=== PATIENT | female | born 1990 | race Caucasian/White ===

== ENCOUNTER 2021-04-01 10:00 | Inpatient (IN) | payer BC, SELFPAY ==
[2013-07-06 08:36] VITALS: BMI 25.2
[2021-04-01] VITALS (22 sets, daily range): BP systolic 96–124; BP diastolic 35–70; PULSE 75–99; RESP 16–18; TEMP 36.2–37.6; O2SAT 96–100; BMI 25.4
--- NOTE | 2021-04-01 | FALS_PTH ---
PATIENT: KELY PEREZ LOC: [facility] U#:[id number] AGE/SX: 30/F ROOM: WP007 RE04/01/[address]: Dr. Chloe Brantley MD : 1990 BED: 1 DIS: 04/03/2021 SPEC #: [id number] RECD: 04/01/21 13:55 STATUS: MARGE ALSTONFord #: [id number] TEJ: 04/01/21 00:[address]: Chloe Brantley DEPT: SURGICAL PATHOLOGY RECD BY: Gomez Pimentel ENTERED: 04/02/21 08:57 SP TYPE: FALL TUBES OTHR DR: Dr. Vito Edward MD Tissues: Fallopian tube Procedures: Surgery Specimen Level II HEADER OPERATION: Tubal ligation PRE-OP DIAGNOSIS: Sterilization TISSUE SUBMITTED: Fallopian tubes, suture in right tube MICROSCOPIC DIAGNOSIS Right and left fallopian tubes, bilateral salpingectomies: Complete segments of fallopian tubes. Benign paratubal cysts. AM:geraldine 04/03/2021 MICROSCOPIC DESCRIPTION Slides are reviewed. GROSS DESCRIPTION Received in fixative is one container labeled with the patient's name and designated bilateral fallopian tubes. The specimen consists of two fallopian tubes with an average length of 9.5 cm and has an average diameter of 0.7 cm. Both fallopian tubes have normal fimbriated ends. No mass lesions are identified. Ski Maker sections are submitted in two cassettes as follows: 1 - fallopian tube with suture, 2 - fallopian tube without suture. / AM:geraldine 04/02/21 TC:5 CPT: 16556 x2
[2021-04-01 09:54] LABS: ROM Internal Control Test YES-OK TO RESULT pt. (Internal QC)
[2021-04-01 09:55] LABS: ROM Patient Test POSITIVE (Negative)
[2021-04-01] MEDS: Lactated Ringers 1,000 ML 999 ML IV (10:25)
[2021-04-01 10:45] LABS: Absolute Lymphocyte Count 1.32 X10^3/uL (0.83-4.51); Basophil# 0.05 X10^3/uL; Basophil% 0.6 % (0-1); Eosinophil# 0.07 X10^3/uL; Eosinophils% 0.8 % (0-5); Hematocrit 30.5 % (37-47); Hemoglobin 9.8 g/dL (12.0-15.0); Lymphocyte # 1.32 X10^3/ul (0.83-4.51); Lymphocyte % 15.9 % (19-41); Mean Corp Hgb Conc 32.1 g/dL (32-36); Mean Corpuscular Hgb 26.8 pg (27.0-32.0); Mean Corpuscular Volume 83.3 fL (81-99); Mean Platelet Vol. 11.3 fl (6.2-12.0); Monocyte# 0.75 X10^3/uL; Monocyte% 9.1 % (0-10); NRBC Flagged by Analyzer 0 % (0-5); Neutrophil # 6.03 X10^3/uL (2.7-7.7); Neutrophil % 72.9 % (47-70); Platelet Count 161 K/mm3 (150-450); RBC Distribution Width CV 14.6 % (11.6-14.6); Red Blood Count 3.66 M/mm3 (4.2-5.4); White Blood Count 8.3 K/mm3 (4.4-11.0)
[2021-04-01] MEDS: Lactated Ringers 1,000 ML 150 ML IV (11:28)
[2021-04-01] MEDS: Sodium Citrate/Citric Acid 30 ML UDC PO (11:31)
--- NOTE | 2021-04-01 11:33 | HP.PCM.OB_ITS ---
HPI - General General Date of Admission: 04/01/21 HPI Narrative KELY PEREZ, is a 30 F who presents [facility] Medical History (Updated 04/01/21 @ 11:[address] Chloe Brantley MD) Anemia Anxiety Asthma Depression IBS (irritable bowel syndrome) Oligohydramnios Home Medications Vits 1 tab PO DAILY 07/01/13 [History Last Taken 03/31/21 10:00 1 tab] acetaminophen [Tylenol] 650 mg PO Q6H PRN 04/01/21 [History Last Taken 04/01/21 07:45 650 mg] bismuth ximu-boajaz-TmAu-resor [Anusol] 1 supp [place] PRN PRN 04/01/21 [History Last Taken 03/30/21 12:00 1 suppository] Allergy/AdvReac Type Severity Reaction Status Date / Time grass pollen-perennial rye, Allergy Rash Verified 07/05/13 15:52 standar [grass poll-perennial rye,std] Latex, Natural Rubber Allergy Hives Verified 06/27/13 18:41 Penicillins [PCN] Allergy Chest Verified 07/05/13 15:52 tightness Sulfa (Sulfonamide Allergy Hives Verified 06/27/13 18:40 Antibiotics) venom-honey bee Allergy Chest Verified 07/05/13 15:52 [bee venom (honey bee)] tightness Surgical History (Updated 04/01/21 @ 10:44 by Thelma Brown) History of surgery Social History Smoking Status: Never smoker History Elective abortions Hx Para 2 Spontaneous abortions Hx # Term Pregnancies Ectopic pregnancies Hx # Pregnancies Multiple births # of living children NST FHR Rate Baby A Baseline: 150 Variability:: Moderate Accelerations:: 15 x 15 Uterine Activity:: Irregular Vital Signs Vital Signs Vital Signs: 04/01/21 09:52 04/01/21 09:55 04/01/21 11:07 Temperature 98.6 F 99.7 F H Temperature Source Temporal Temporal Pulse Rate 99 97 82 Respiratory Rate 18 Blood Pressure 117/68 117/68 123/66 H Blood Pressure Mean 85 BP Systolic 117 117 BP Diastolic 68 68 Blood Pressure Source Monitor Blood Pressure Position Semi-Fowlers Blood Pressure Location Left Arm Pulse Ox 97 04/01/21 11:08 Temperature Temperature Source Pulse Rate 82 Respiratory Rate Blood Pressure 123/66 H Blood Pressure Mean BP Systolic 123 BP Diastolic 66 Blood Pressure Source Blood Pressure Position Blood Pressure Location Pulse Ox Weight Weight: 148 lb Body Mass Index (BMI) 25.4 Labs Labs Labs: Blood Type Not Reportable Antibody Screen Not Reportable Hct 30.5 % (37-47) L Hgb 9.8 g/dL (12.0-15.0) L Rhogam given: Yes See [facility] H&P Assessment & Plan (1) Labor presentation, breech: QUALIFIERS: Fetus number: single or unspecified fetus Qualified Code(s): O32.1XX0 - Maternal care for breech presentation, not applicable or unspecified COMMENT: @ 37&5 PLAN: Admit to L&D Counseled on R/B/A of primary section and patient wishes to proceed. Informed consent signed. Tubal sterilization - patient counseled extensively on risks of regret & failure. She wishes to proceed with bilateral salpingectomy.
--- NOTE | 2021-04-01 13:08 | OP.PCM_ITS ---
Details Operative Information Date of Procedure: 04/01/21 Pre-Operative Diagnosis: (1) Labor at 37&5 (2) Breech (3) Sterilization request Post-Operative Diagnosis: Same Indications for : Breech Classification: JEAN-CLAUDE Procedure Type: low transverse (and bilateral salpingectomy) spooling operator #1: Loly De Los Santos Type of Anesthesia: Spinal Antibiotic Given: Clindamycin 600mg IV x1 and Gentamicin 1.5mg/kg IV x1 Drain: Cruz to straight drain Estimated Blood Loss: 800ml Fluids Replaced: 1000ml Procedure Start Time: 12:04 Procedure Stop Time: 13:08 Findings Description of Procedure: The patient was taken to the operating room where spinal anesthesia was placed. She was prepped and draped in the dorsal supine position with a leftward tilt. A Pfannenstiel skin incision was made approximately 2 cm above the symphysis pubis and carried through to underlying layer fascia with the scalpel. The fascia was incised incised in the midline and extended laterally with the Hansen scissors. The rectus muscles were in the midline and the peritoneum was entered carefully and bluntly. The peritoneal incision was stretched and the bladder blade was placed. The uterine incision was made in a low transverse fashion with the scalpel and extended superiorly and inferiorly with blunt dissection. The infant's buttocks were grasped and delivered carefully with typical breech maneuvers. The cord was clamped and cut as the was stimulated. Cord clamping was delayed. The infant was handed off to the waiting nursing staff. The placenta was delivered with fundal massage and gentle traction in the standard fashion. The uterus was exteriorized and cleared of all clots and debris. The uterine incision was closed with #1 Vicryl suture in a running locked fashion. Monocryl suture was used in an imbricating fashion for a second layer. The incision was examined and was found to be hemostatic. Attention was then turn to the patient's fallopian tubes. The right fallopian was grasped, cauterized and then cut using the ligasure. The entire right fallopian tube was excised in this fashion and excellent hemostasis was noted. This process was repeated with the left fallopian tube. The uterus was then returned to the abdominal cavity. Excellent hemostasis again confirmed at bilateral salpingectomy sites. After irrigating rodrigo was placed over the uterine incision as some tissue was denuded. Peritoneum was closed in running fashion. The rectus muscles were examined and any bleeding was Bovie cauterized. The subcutaneous tissue was examining and any bleeding was Bovie cauterized. The subcutaneous tissue was reapproximated with 3-0 Vicryl suture. The skin was closed in a subcuticular fashion. All sponge, lap, and needle counts were correct. The patient was taken to her room for recovery in a stable condition. Presentation: Positive for Terrence Breech Amniotic Membrane Rupture Type: Spontaneous Amniotic Fluid Description: Clear Placental Delivery Description: Manual Removal Placenta Disposition: [facility] Specimen(s) Sent to Pathology: Bilateral segment of fallopian tubes Cord Vessel Description: 3 Vessels Cord Entanglement: None Infant A Gender: Female (Briella) (1 minute): 10 (5 minute): 10 Delayed Cord Clamping: Yes Complications Complications: None
[2021-04-01] MEDS: Oxytocin 30 units/NS 500 ml 30 UNITS/500 ML IV.SOLN 167 UNITS IV (13:35)
[2021-04-01] MEDS: Ketorolac 30 MG/ML Syringe IV ×2 (13:48→19:05)
[2021-04-01 13:55] LABS: Pathology Specimen OB SEE PATHOLOGY REPORT
[2021-04-01] MEDS: Acetaminophen 500 MG Tablet 1000 MG PO ×2 (15:27→21:39)
[2021-04-01] MEDS: Lactated Ringers 1,000 ML 100 ML IV (16:50)
[2021-04-02] VITALS: BP 116/64; PULSE 75; RESP 18; TEMP 36.5; O2SAT 100
[2021-04-02] MEDS: Ketorolac 30 MG/ML Syringe IV ×2 (00:48→06:57)
[2021-04-02] MEDS: 0.9% Saline Lock 10 ML Syringe IV ×2 (00:48→06:57)
[2021-04-02] MEDS: Acetaminophen 500 MG Tablet 1000 MG PO ×4 (03:32→21:42)
[2021-04-02 03:34] VITALS: BP 111/52; PULSE 77; RESP 16; TEMP 36.6; O2SAT 97
[2021-04-02 06:00] LABS: Hematocrit 24.9 % (37-47); Mean Corp Hgb Conc 32.1 g/dL (32-36); Mean Corpuscular Volume 84.1 fL (81-99); Mean Platelet Vol. 11.1 fl (6.2-12.0); Platelet Count 138 K/mm3 (150-450); RBC Distribution Width CV 14.6 % (11.6-14.6); RBC Distribution Width SD 44.6 fl (35.1-43.9); Red Blood Count 2.96 M/mm3 (4.2-5.4); White Blood Count 9.2 K/mm3 (4.4-11.0)
--- NOTE | 2021-04-02 08:27 | PCM.PN.OB ---
Subjective Subjective Patient seen at bedside. Sitting up eating breakfast tray. Feeling good. Ambulating and voiding without difficulty. Denies any dizziness, SOB, or CP. Bottle feeding . Desires discharge home tomorrow. Objective Data Objective Data Vital Signs: Vital Signs Temp Pulse Resp BP Pulse Ox 97.8 F 77 16 111/52 L 97 04/02/21 03:34 04/02/21 03:34 04/02/21 03:34 04/02/21 03:34 04/02/21 03:34 Oxygen Delivery Method Room Air Weight: 148 lb Body Mass Index (BMI) 25.4 Intake & Output: Intake and Output for Last 24 Hours 03/31/21 04/01/21 04/02/21 23:59 23:59 23:59 Intake Total 2790.92 / 2790.92 Output Total 1375 / 1375 950 / 950 Balance 1415.92 / 1415.92 -950 / -950 Lab / Micro Data Result Diagrams: 04/02/21 05:35 Labs: Laboratory Results - last 24 hr 04/01/21 04/01/21 04/01/21 09:39 10:25 10:25 WBC 8.3 RBC 3.66 L Hgb 9.8 L Hct 30.5 L MCV 83.3 MCH 26.8 L MCHC 32.1 RDW Std Deviation 44.0 H RDW Coeff of Siddharth 14.6 Plt Count 161 MPV 11.3 Immature Gran % (Auto) 0.700 Neut % (Auto) 72.9 H Lymph % (Auto) 15.9 L [place] % (Auto) 9.1 Eos % (Auto) 0.8 Baso % (Auto) 0.6 Absolute Neuts (auto) 6.0 Absolute Lymphs (auto) 1.32 Nucleated RBC % 0 Vag Amniotic Fld Detect POSITIVE H Blood Type A NEGATIVE Antibody Screen POSITIVE H Antibody Identification ANTI-D Screen Baby's Blood Type Baby's YESSI 04/01/21 04/02/21 19:10 05:35 WBC 9.2 RBC 2.96 L Hgb 8.0 L Hct 24.9 L MCV 84.1 MCH 27.0 MCHC 32.1 RDW Std Deviation 44.6 H RDW Coeff of Siddharth 14.6 Plt Count 138 L MPV 11.1 Immature Gran % (Auto) Neut % (Auto) Lymph % (Auto) [place] % (Auto) Eos % (Auto) Baso % (Auto) Absolute Neuts (auto) Absolute Lymphs (auto) Nucleated RBC % Vag Amniotic Fld Detect Blood Type Antibody Screen Antibody Identification Screen NEGATIVE Baby's Blood Type B POSITIVE Baby's YESSI NEGATIVE Micro: Microbiology 04/01/21 10:35 Mucosa - Nose SARS-CoV-2 Antigen (Rapid) - Final ROS Eyes Eyes: Denies blurry vision, change in vision or spots in vision ENT HEENT: Denies dizziness or headache(s) Cardiovascular Cardiovascular: Denies abdominal pain, chest pain or dyspnea Respiratory/Chest Respiratory/Chest: Denies cough, dyspnea, shortness of breath at rest or shortness of breath with exertion Gastrointestinal Gastrointestinal: Denies abdominal pain, diarrhea or vomiting Genitourinary Genitourinary: Denies change in urinary stream, difficulty urinating or dysuria Musculoskeletal Musculoskeletal: Reports none Integumentary Integumentary: Denies rash Neurologic Neurologic: Denies dizziness, headache(s), memory loss or weakness Physical Exam Narrative Dressing is dry and intact Const alert and no apparent distress General Appearance: cooperative and comfortable Exam Limitations: no limitations HEENT normocephalic Eyes General Eye: normal appearance of both eyes Neck full ROM General: normal visual inspection Chest Chest: symmetrical chest wall rise Resp normal respiratory effort and normal air movement Effort and Inspection: symmetric chest movement Auscultation: clear to auscultation bilaterally Cardio regular rate and regular rhythm GI normal to inspection, nondistended, normoactive bowel sounds Back/Spine normal ROM Extremity full ROM and no calf tenderness General Extremity: normal exam except as noted Skin no rashes or lesions noted Neuro CN's II-XII intact bilaterally Psych mental status grossly normal Assessment & Plan (1) Status post primary low transverse section: PLAN: POD #1 Primary C/S for breech Pain Control Routine care Anticipate discharge home tomorrow
[2021-04-02 08:45] VITALS: BP 104/63; PULSE 78; RESP 16; TEMP 36.4; O2SAT 97
[2021-04-02] MEDS: Enoxaparin 40 MG/0.4 ML Syringe SC (10:04)
[2021-04-02] MEDS: Senna/Docusate Sodium 1 Tablet PO (10:05)
[2021-04-02 11:41] VITALS: BP 112/60; PULSE 80; RESP 16; TEMP 36.2; O2SAT 98
[2021-04-02] MEDS: Ibuprofen 600 MG Tablet PO ×2 (13:22→19:05)
[2021-04-02 16:02] VITALS: BP 105/61; PULSE 72; RESP 16; TEMP 36.9; O2SAT 98
[2021-04-02] MEDS: oxyCODONE 5 MG Tablet PO (20:20)
[2021-04-02 20:24] VITALS: BP 107/40; PULSE 66; RESP 18; TEMP 36.3; O2SAT 96
[2021-04-03] MEDS: Ibuprofen 600 MG Tablet PO ×2 (02:08→06:17)
[2021-04-03 02:11] VITALS: BP 108/41; PULSE 72; RESP 18
[2021-04-03] MEDS: Acetaminophen 500 MG Tablet 1000 MG PO ×2 (04:05→09:59)
[2021-04-03] MEDS: oxyCODONE 5 MG Tablet PO ×2 (04:56→08:17)
--- NOTE | 2021-04-03 06:33 | PCM.DC.SUM ---
Providers Date of Admission: 04/01/21 Primary Care Physician: Dr. Vito Edward MD Reason For Visit: PRIMARY C SECTION DELIVERY Diagnosis Discharge Diagnosis (1) Status post primary low transverse section: Status: Acute Code(s): Z98.891 - History of uterine scar from previous surgery Medications at Discharge Home Medications Vits 1 tab PO DAILY 07/01/13 ibuprofen 600 mg PO Q6H #0 tab 04/03/21 oxycodone 5 - 10 mg PO Q4H PRN PRN 5 Days #10 tab 04/03/21 Hospital Course Operations section Summary of Care Provided Hospital Course: Patient was here for primary section for breech presentation. Hospital course uneventful. Physical Exam Narrative Dressing is dry and intact Const alert and no apparent distress General Appearance: cooperative and comfortable Exam Limitations: no limitations HEENT normocephalic Eyes General Eye: normal appearance of both eyes Neck full ROM General: normal visual inspection Chest Chest: symmetrical chest wall rise Resp normal respiratory effort and normal air movement Effort and Inspection: symmetric chest movement Auscultation: clear to auscultation bilaterally Cardio regular rate and regular rhythm GI normal to inspection, nondistended, normoactive bowel sounds Back/Spine normal ROM Extremity full ROM and no calf tenderness General Extremity: normal exam except as noted Skin no rashes or lesions noted Neuro CN's II-XII intact bilaterally Psych mental status grossly normal Weight / BMI Weight Weight: 148 lb Body Mass Index (BMI) 25.4 ABG / Lab / Microbiology Data Result Diagrams: 04/02/21 05:35 Microbiology: Microbiology 04/01/21 10:35 Mucosa - Nose SARS-CoV-2 Antigen (Rapid) - Final D/C Instructions Discharge Diet: No restrictions May resume sexual activity in: 6-8 weeks Weight Bearing Status: Weight bearing as tolerated Lifting Restrictions: 20 lbs Call your doctor if your incision/area has: Continuous Slow Oozing, Increased Pain/ Swelling, Increased Redness, Foul Smelling Discharge and Swelling at the incision site Call your doctor if you observe: Fever of 101 or Higher, Inability to urinate, Using more than 1 pad per hour, Shortness of breath, Chest pain, Calf discomfort and Uncontrolled pain Remove Dressing in: 5 days Cleanse incision/area with: Soap & Water and Keep Dressing Clean & Dry Please Follow Up With: Megan Samayoa CNM When: 1 week in office for incision check or sooner if needed 6 weeks Meaningful Use Info Meaningful Use Diagnoses (Choose all that apply): None applicable Discharge Plan Admission Admit Date/Time: 04/01/21 10:00 Primary Reason for Your Visit: primary c/s Attending Provider: Chloe Brantley Primary Care Provider: Vito Edward Instructions Patient Instructions: After a Discharge Orders/Prescriptions Prescriptions: New oxycodone 5 mg Tablet 5 - 10 mg PO Q4H PRN PRN (Reason: Pain Score 4-10) 5 Days Qty: 10 RF: 0 ibuprofen 600 mg Tablet 600 mg PO Q6H Qty: 0 RF: 0 Continued Vits 1 tab PO DAILY RF: 0 Discontinued Anusol Suppository 1 supp [place] PRN PRN (Reason: Hemorrhoids) RF: 0 acetaminophen [Tylenol] 325 mg Capsule 650 mg PO Q6H PRN (Reason: Pain) RF: 0 buspirone [BuSpar] 5 mg Tablet 5 mg PO TID PRN (Reason: Anxiety) RF: 0 Referrals / Follow Up: Vito Edward MD [Primary Care Provider] - Disposition Disposition (needs filled in before D/C Order can be placed): Home, Self Care
[2021-04-03 08:00] VITALS: BP 114/53; PULSE 72; RESP 16; TEMP 36.4; O2SAT 99
[2021-04-03] MEDS: Senna/Docusate Sodium 1 Tablet PO (08:18)
--- NOTE | 2021-04-03 09:45 | CASEMGMT ---
Social Work Brief Assessment - Labor and Delivery Unit Patient Address: [facility] [address], [place] [id number] Phone number: [phone] Date of Referral/Notification: Time of Referral: 2009 Referred By: Dr. Brantley Reason for Referral: maternal history of anxiety and depression; information on advanced directives. Date of Intervention: 04.01.2021 Time of Intervention: 944 Informant: Medical record and mother of baby (MOB) Margaret Tierney; father of baby (FOB) Hernando Tierney also present. History: ROMEO is a 30 year old female, to the FOB. MOB and FOB now have 3 children together: Beto Tierney (born 08.04.2010), Luis Tierney (born 07.06.2013), and baby girl Viraj Tierney (born 04.01.2021). ROMEO is G3, P2 to 3 after delivering Viraj. MOB started PNC in the first trimester and regular appointment thereafter. delivered at 37 weeks gestation via primary caesarian section. Apgars 10 and weight 7 pounds 14 ounces. MOB graduated high school and no concerns with reading, writing, or learning. 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 MOB reports history of depression and anxiety, though denies and concerns in prior post periods. MOB reports history of treatment with medication of Zoloft and counseling, though not currently using either modality. MOB reports was prescribed Buspar during for anxiety, to jair as needed, which MOB reports to have used sparingly. MOB reports to be feeling stable off of the Zoloft. No reports of any substance use, and maternal drugs screen was negative on 09.30.2020. Upon admission, MOB denies any history of violence or safety concerns in relationships. Assessment: Met with MOB and FOB in room. Introduced to self and social work role. MOB up and moving in room, and FOB packing. The parents were taking pictures of baby when nephrology social worker entered the room. MOB reports to feel mood is stable at this time, and reports if symptoms of depression arise, or anxiety becomes distressing would be willing to go back to counseling or try medications. Educated parents to risk for mood and anxiety disorders, and importance of seeking out help and support. MOB expresses understanding and agreement. MOB plans to remain on Buspar as needed for anxiety, but agrees to talk to doctor if usage is increasing or symptoms of anxiety or depression arise and become distressing. MOB reports to have needed supplies to care for baby, to have support from family, and no concerns with housing or transportation. MOB accepted information on mood and anxiety disorders. MOB engaged the FOB in conversation, seeking input about MOB's history on depression and anxiety. FOB gave input and presented as supportive to the MOB. No indications of safety concerns. No voiced concerns by nursing staff regarding family interactions or bonding. Plan: MOB and baby to discharge home when ready. Resources for mood and anxiety disorders provided. No further needs requested or indicated. -GERBER Cazares, JIG AND FIXTURE BUILDER APPRENTICE
[2021-04-03] MEDS: Enoxaparin 40 MG/0.4 ML Syringe SC (10:00)
--- NOTE | 2021-04-07 09:59 | CASEMGMT ---
Social Work Labor and Delivery Mailed advanced directive information and social work rac card to patient's mailing address. Included this mortgage or loan underwriter's contact number should patient have any questions about the forms or about completing. -KALEIGH Cazares, INTERNAL CONTROL SPECIALIST
--- NOTE | 2021-04-09 16:56 | NURSING ---
Left voicemail at follow up call
== END 2021-04-03 10:40 | disposition home or self-care (01) | DRG 784 ==
LOC: WPOUT 10:06 → WP 10:07
PROVIDERS: Admitting Provider Obstetrics & Gynecology; PCP Family Medicine; Referring Provider Obstetrics & Gynecology; Visit Provider Obstetrics & Gynecology
DX: O32.1XX0 Maternal care for breech presentation, not applicable or unspecified (principal); O41.03X0 Oligohydramnios, third trimester, not applicable or unspecified; Z30.2 Encounter for sterilization; Z20.822 Contact with and (suspected) exposure to COVID-19; Z3A.37 37 weeks gestation of pregnancy; Z37.0 Single live birth
CPT/HCPCS: 59025; 59050; 84112; 85025; 85027; 85461; 86850; 86870; 86900; 86901; 87426; 88302; 90384; 99218; J7120; A4216; G0378; J2405; J2790